=== PATIENT | female | born 1960 | race Caucasian/White ===

== ENCOUNTER 2021-10-30 13:43 | Emergency (ER) | payer MEDICAID ==
[~2021-10-30] VITALS: Ht 154.9 cm; Wt 62.0 kg
[2021-10-30] MEDS ORDERED: MORPHINE SULFATE 4 MG/ML CPJ (NOT FOR IM USE) IV ONE (14:00)
[2021-10-30 14:43] LABS: BASOPHILS % 0.5 % (0.0-2.0); EOSINOPHILS % 1.4 % (0.0-5.0); HEMATOCRIT. 40.5 % (36.0-48.0); HEMOGLOBIN. 13.4 g/dL (12.0-16.0); LYMPHOCYTES % 32.8 % (20.0-50.0); MEAN CORPUSCULAR HEMOGLOBIN 28.2 pg (28.0-32.0); MEAN CORPUSCULAR VOLUME 85.5 fL (81.0-99.0); MEAN PLATELET VOLUME 7.8 fl (7.4-10.4); MONOCYTES % 5.3 % (2.0-8.0); PLATELET 320 x1000/uL (130-400); RED BLOOD CELL COUNT 4.74 mill/uL (4.2-5.4); RED CELL DISTRIBUTION WIDTH 14.2 % (11.6-14.6)
[2021-10-30 14:44] LABS: CHLORIDE 107 mEq/L (98-107)
[2021-10-30] MEDS ORDERED: ONDANSETRON HCL 4MG/2ML INJ IV ONE (15:45)
[2021-10-30 16:35] VITALS: BP 134/66
== END 2021-10-30 17:31 | disposition home or self-care (01) ==
LOC: ER 14:14
DX: R07.9 Chest pain, unspecified (principal); I10 Essential (primary) hypertension; E11.9 Type 2 diabetes mellitus without complications; Z90.49 Acquired absence of other specified parts of digestive tract
CPT/HCPCS: 36415; 71045; 80053; 83880; 84484; 85025; 85379; 93005; 96374; 96375; 99285; J2270; J2405